=== PATIENT | female | born 1995 | race Two or more races ===

== ENCOUNTER 2018-06-15 21:54 | Emergency (ER) | payer MEDICAID ==
[~2018-06-15] VITALS: Ht 167.6 cm; Wt 122.5 kg
--- NOTE | 2018-06-15 22:20 | NUR ---
ED Nurse Note: RECIEVED PT ON GURNEY FROM HOME WITH C/O EPIGASTRIC / CHEST PAIN, BURNING FOR 2 HOURS CLERICAL ADMINISTRATOR, PT WAS AT WORK AND HAD SUDDEN BURNING IN MID CHEST WITH NAUSEA, DENIES EMESIS, FEVERS, DIARRHEA OR ANY OTHER COMPLAINTS, PT GAVE URINE SAMPLE AND ASSISTED TO CARDIAC MONITORING, WILL RESUME CARE ORDERED.
--- NOTE | 2018-06-15 22:27 | Emergency Room Report ---
History of Present Illness General Chief Complaint: Chest Pain Source: Patient Present Illness HPI Patient presents with chest pain. It's substernal. It's not radiating. 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 She does that frequently and usually it does not cause pain. She's had minimal pain like this in the past and usually goes away on its own. She's never been evaluated. She doesn't have a history of heart disease or risk factors. She says the pain felt like pressure. She denies any vomiting or diaphoresis. She took no medications and now the pain is a 1/10. She denies heartburn or reflux symptoms No fevers, sore throat, cough, control, calf pain, edema, nausea, vomiting , diarrhea, dysuria. 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 Last Menstrual Period: 05/25/2018 Now: No : 0 Para: 0 Reviewed Nursing Documentation: PMH: Agreed; PSxH: Agreed Nursing Documentation-PMH Past Medical History: No History, Except For Hx Asthma: Yes Review of Systems All Other Systems: negative except mentioned in HPI Physical Exam Vital Signs Date Time Temp Pulse Resp B/P (MAP) Pulse Ox O2 Delivery O2 Flow Rate FiO2 06/15/18 22:10 98.1 84 16 146/93 100 Room Air Sp02 EP Interpretation: reviewed, normal General Appearance: well appearing, no apparent distress, GCS 15 Head: normocephalic, atraumatic Eyes: bilateral eye normal inspection, bilateral eye PERRL ENT: moist mucus membranes Neck: supple Respiratory: chest non-tender, lungs clear, normal breath sounds Cardiovascular #1: regular rate, rhythm Cardiovascular #2: 2+ radial (R) Gastrointestinal: normal inspection, normal bowel sounds, non tender, no mass, non-distended Genitourinary: no CVA tenderness Musculoskeletal: back normal, gait/station normal, normal range of motion, no calf tenderness Neurologic: alert, oriented x3, grossly normal Psychiatric: mood/affect normal Skin: normal inspection, warm/dry Medical Decision Making Diagnostic Impression: Primary Impression: Chest pain Qualified Codes: R07.9 - Chest pain, unspecified ER Course Patient presents with chest pain began when she was exerting herself. Differential includes muscle strain, GERD, cardiac anomaly amongst others. EKG , chest x-ray are indicated. The patient will be treated with Mylanta and Tylenol as the pain is somewhat better. EKG without injury, some suggestion of LVH. Chest x-ray unremarkable. Urinalysis clear with negative test. Patient is improved. No evidence of cardiac or pulmonary emergency at this time. Patient is stable for outpatient observation and treatment. Laboratory Tests Test 06/15/18 22:55 Urine Color Pale yellow Urine Appearance Clear Urine pH 6 (4.5-8.0) Urine Specific [place] 1.015 (1.005-1.035) Urine Protein Negative (NEGATIVE) Urine Glucose (UA) Negative (NEGATIVE) Urine Ketones Negative (NEGATIVE) Urine Blood Negative (NEGATIVE) Urine Nitrite Negative (NEGATIVE) Urine Bilirubin Negative (NEGATIVE) Urine Urobilinogen Normal MG/DL (0.0-1.0) Urine Leukocyte Esterase 2+ (NEGATIVE) H Urine RBC 0-2 /HPF (0 - 2) Urine WBC 2-4 /HPF (0 - 2) Urine Squamous Epithelial Cells Few /LPF (NONE/OCC) Urine Bacteria Few /HPF (NONE) Urine HCG, Qualitative Negative (NEGATIVE) EKG Diagnostic Results Rate: normal Rhythm: NSR ST Segments: no acute changes Rhythm Strip Diag. Results EP Interpretation: yes Rhythm: NSR, no PVC's, no ectopy Chest X-Ray Diagnostic Results Chest X-Ray Diagnostic Results : Chest X-Ray Ordered: Yes # of Views/Limited/Complete: 1 View Indication: Chest Pain EP Interpretation: Yes Interpretation: no consolidation, no effusion, no pneumothorax Impression: No acute disease Electronically Signed by: Electronically signed by Guzman Rendon MD Last Vital Signs Date Time Temp Pulse Resp B/P (MAP) Pulse Ox O2 Delivery O2 Flow Rate FiO2 06/16/18 00:18 98.4 16 136/88 99 Room Air 06/15/18 22:20 84 Status: improved Disposition: HOME, SELF-CARE Condition: Improved Scripts Acetaminophen (Tylenol) 325 Mg Tablet 650 MG ORAL Q6H PRN for Prn Pain/Headache/Temp > 101, #20 TAB 0 Refills Prov: Guzman Rendon MD 06/15/18 Mag Hydrox/Al Hydrox/Simeth (MAALOX MAXIMUM STRENGTH SUSP) 355 Ml Oral.susp 30 ML PO Q6HR, #344 ML Prov: Guzman Rendon MD 06/15/18 Guzman Rendon MD Jun 15, 2018 22:27
[2018-06-15] MEDS ORDERED: Mylanta II UD 30ml ORAL ONE (22:30)
[2018-06-15 23:01] LABS: APPEARANCE,URINE CLEAR; BILIRUBIN, URINE NEGATIVE (NEGATIVE); COLOR,URINE PALE YELLOW; GLUCOSE, URINE (UA) NEGATIVE (NEGATIVE); KETONES,URINE NEGATIVE (NEGATIVE); LEUKOCYTE ESTERASE ,URINE 2+ (NEGATIVE); NITRITE,URINE NEGATIVE (NEGATIVE); PH,URINE 6 (4.5-8.0); PROTEIN,URINE NEGATIVE (NEGATIVE); UROBILINOGEN,URINE NORMAL MG/DL (0.0-1.0)
[2018-06-15 23:15] VITALS: BP 136/88
[2018-06-15] MEDS ORDERED: MAALOX MAXIMUM355 M1 PO (23:53)
[2018-06-15] MEDS ORDERED: TYLENOL325 MG ORAL (23:53)
--- NOTE | 2018-06-16 | NUR ---
ED Nurse Note: PT STATES MEDS GIVEN EFFECTIVE, ALL S/S RESOLVED, PT BEING D/C TO HOME, GIVEN F/U INFO, AFTER CARE INSTRUCTIONS AND RE-VERBALIZES PROPER MEDICATION ADMINISTRATION AND S/S TO MONITOR FOR, PT ARMBAND REMOVED, PT LEAVING WITH FAMILY AND AMBULATORY, NAD NOTED DURING D/C TO HOME.
[2018-06-16 00:18] VITALS: BP 136/88
--- NOTE | 2018-06-16 15:13 | Cardiology Report ---
APPROVED REPORT EKG Measurement Heart [id number] Normal sinus rhythm with sinus arrhythmia Minimal voltage criteria for LVH, may be normal variant Borderline ECG
== END 2018-06-16 00:10 | disposition home or self-care (01) ==
LOC: EMR 06-16 00:09
DX: R07.9 Chest pain, unspecified (principal); J45.909 Unspecified asthma, uncomplicated
CPT/HCPCS: 71045; 81003; 81025; 93005; 99283